=== PATIENT | female | born 1935 | race Caucasian/White ===

== ENCOUNTER → 2017-06-30 09:54 | Outpatient (CLI) | payer MEDICARE, OTHER ==
[2014-02-16 06:26] VITALS: BMI 27.0
[~2017-06-30 09:54] MED LIST: ATENOLOL25 MG PO; MULTIPLE VITAMI1 TA1 PO; NORVASC2.5 MG PO; VITAMIN D2000 UNIT PO; ZOCOR40 MG PO
== END | disposition home or self-care (01) ==
LOC: D.US 09:54
DX: I12.9 Hypertensive chronic kidney disease with stage 1 through stage 4 chronic kidney disease, or unspecified chronic kidney disease (principal); N18.3 Chronic kidney disease, stage 3 (moderate); R80.9 Proteinuria, unspecified; Z68.26 Body mass index [BMI] 26.0-26.9, adult